=== PATIENT | female | born 1990 | race African-American/Black ===

== ENCOUNTER 2021-03-21 12:54 | Emergency (ER) | payer OTHER ==
[~2021-03-21] VITALS: Ht 175.3 cm; Wt 131.5 kg
--- NOTE | ~2021-03-21 | EMS ---
[facility] [address] [place] [address] EMS Patient Care Report Name: STELLA KIRK Room #: [facility].RCheng#: [id number] Admission: Attend Phys: Discharge: Date of : [birth year] Report #: [id number] THIS REPORT FOR: //name// Report Transmitted: 03/21/2021 12:28 EMS Care Summary [place], [place]/[facility] Incident [id number] @ 03/21/2021 12:21 Incident Location [address] [place], [place] [id number] Patient STELLA KIRK Female, 30 Years 1990 Patient Address [address] [place], [place] [id number] Patient History Bone Cancer, Patient Allergies No known allergies, Patient Medications None Reported, Chief Complaint ANXIETY Disposition Transported No Lights/[place] Dispatch Reason Breathing Problem Transported To [facility] Narrative M41 RESPONDED TO A RESIDENCE ON A SICK. PATIENT STATES SHES BEEN FEELING ANXIOUS FOR APPROXIMATELY ONE HOUR. UPON EMS ARRIVAL PATIENT FOUND WALKING OUT FRONT DOOR OF RESIDENCE WITH T15 [facility] [address] [place] [address] EMS Patient Care Report Name: STELL[facility]IRK [id number] Admission: Attend Phys: Discharge: Date of : [birth year] Report #: [id number] CREW. PATIENT WALKED TO AMBULANCE AND WAS BUCKLED IN WITH SEATBELTS. TWO SETS OF STABLE VITALS OBTAINED ENROUTE. PATIENT TRANSFERRED SELF FROM COT TO CHAIR WITH NO ISSUES. REPORT GIVEN TO RN. RN SIGNATURE OBTAINED. Initial Vitals @12:37P: 109,R: 16,BP: 97/68,Pain: 0/10,GCS: 15,CO: 5,SpO2: 98,Revised Trauma: 12, @12:36P: 101,R: 16,BP: 92/60,Pain: 0/10,GCS: 15,Glucose: 92,CO: 3,SpO2: 98,Revised Trauma: 12, Assessments @12:36MENTAL:Place Oriented,Person Oriented,Time Oriented,Event Oriented,SKIN:HEENT:Head/Face: No Abnormalities,Neck/Airway: No Abnormalities,LUNG SOUNDS:General: No Abnormalities,ABDOMEN:General: No Abnormalities,PELVIS//GI:No Abnormalities,EXTREMITIES:Left Arm: No Abnormalities,Right Arm: No Abnormalities,Left Leg: No Abnormalities,Right Leg: No Abnormalities,PULSE:NEURO:No Abnormalities,@12:36MENTAL:No Abnormalities,SKIN:No Abnormalities,HEENT:Head/Face: No Abnormalities,Eyes: No Abnormalities,Neck/Airway: No Abnormalities,LUNG SOUNDS:General: No Abnormalities,Left Upper: No Abnormalities,Right Upper: No Abnormalities,Left Lower: No Abnormalities,Right Lower: No Abnormalities,ABDOMEN:General: No Abnormalities,Left Upper: No Abnormalities,Right Upper: No Abnormalities,Left Lower: No Abnormalities,Right Lower: No Abnormalities,PELVIS//GI:No Abnormalities,EXTREMITIES:Left Arm: No Abnormalities,Right Arm: No Abnormalities,Left Leg: No Abnormalities,Right Leg: No Abnormalities,PULSE:NEURO:No Abnormalities, Impression Anxiety reaction/Emotional upset Procedures @12:36 ALS Assessment Response: UnchangedSucceeded @12:36 BLS Assessment Response: Unchanged Timeline 12:20,Call Received 12:20,Dispatch Notified 12:21,Dispatched 12:23,En Route 12:35,On Scene 12:36,At Patient 12:36,BLS Assessment,Response: Unchanged 12:36,ALS Assessment,Response: UnchangedSucceeded, 12:36,BP: 92/60 M,PULSE: 101,RR: 16 R,SPO2: 98 Ox,ETCO2: ,B,PAIN: 0,GCS: 15, [facility] [address] [place] [address] EMS Patient Care Report Name: STELLA KIRK Room #: [facility] M.R.#: [id number] Admission: Attend Phys: Discharge: Date of : 89 Report #: [id number] 12:37,BP: 97/68 M,PULSE: 109,RR: 16 R,SPO2: 98 Ox,ETCO2: ,BG: ,PAIN: 0,GCS: 15, 12:40,Depart Scene 12:50,At Destination 13:06,Call Closed Disclaimer v1.1 Copyright 2020 [employer] This EMS Care Summary contains data elements from the applicable legal record (which may be displayed differently). It is designed to provide pertinent information for the following purposes: continuity of care, clinical quality, and state data reporting. The complete legal record is available to ED staff and administrators of the receiving hospital in [facility]'s Patient Tracker. All data is provided "as is."
[2021-03-21 13:22] LABS: URINE BILIRUBIN NEGATIVE (Negative); URINE BLOOD NEGATIVE (Negative); URINE CLARITY CLEAR; URINE COLOR YELLOW; URINE GLUCOSE-RANDOM* NEGATIVE (Negative); URINE KETONES NEGATIVE (Negative); URINE NITRITE-REFLEX NEGATIVE (Negative); URINE PROTEIN (DIPSTICK) TRACE (Negative); URINE SPECIFIC GRAVITY 1.025 (1.005-1.035); URINE UROBILINOGEN 0.2 E.U./dl (0.2-1.0)
[2021-03-21 13:25] LABS: URINE LEUKOCYTES-REFLEX 1+ (Negative)
[2021-03-21 13:52] LABS: CASTS None Seen /LPF (None Seen); SQUAMOUS 4-10 Moderate /LPF (0-3)
[2021-03-21 14:03] LABS: BACTERIA-REFLEX 1-9 Few /HPF (None Seen); CRYSTALS None Seen /LPF (None Seen); URINE RBC 1-2 Rare /HPF (NONE SEEN); URINE WBC-REFLEX 6-15 Few /HPF (0-5)
[2021-03-21] MEDS ORDERED: CEPHALEXIN500 MG PO (16:49)
[2021-03-21 17:08] VITALS: BP 133/81
== END 2021-03-21 17:16 | disposition home or self-care (01) ==
LOC: ER 12:54
PROVIDERS: Emergency Medicine
DX: I95.1 Orthostatic hypotension (principal); F41.9 Anxiety disorder, unspecified; N39.0 Urinary tract infection, site not specified